=== PATIENT | female | born 1970 | race Native Hawaiian/Other Pacific Islander ===

== ENCOUNTER 2020-04-06 18:42 | Emergency (ER) | payer OTHER ==
[~2020-04-06] VITALS: Ht 162.6 cm; Wt 72.6 kg
[2020-04-06 18:55] VITALS: TEMP 98.1
[2020-04-06 20:33] LABS: PLATELET COUNT 354 K/uL (152-353)
[2020-04-06 20:35] LABS: POTASSIUM 4.2 mmol/L (3.6-5.2)
[2020-04-06 21:26] VITALS: BP 161/89
== END 2020-04-06 21:32 | disposition home or self-care (01) ==
LOC: ED 18:42
PROVIDERS: Family Medicine
DX: I10 Essential (primary) hypertension (principal); M54.9 Dorsalgia, unspecified; F41.9 Anxiety disorder, unspecified
CPT/HCPCS: 80053; 81000; 85027; 87086; 87088; 99283

== ENCOUNTER 2020-12-07 14:07 | Emergency (ER) | payer OTHER ==
[~2020-12-07] VITALS: Ht 162.6 cm; Wt 65.8 kg
[2020-12-07 14:19] VITALS: BP 109/67; TEMP 97.3
== END 2020-12-07 15:49 | disposition home or self-care (01) ==
LOC: ED 14:07
DX: S22.42XG Multiple fractures of ribs, left side, subsequent encounter for fracture with delayed healing (principal); Z86.16 Personal history of COVID-19; X50.9XXA Other and unspecified overexertion or strenuous movements or postures, initial encounter; Y92.89 Other specified places as the place of occurrence of the external cause
CPT/HCPCS: 99282

== ENCOUNTER 2021-02-01 10:06 | Emergency (ER) | payer OTHER ==
[~2021-02-01] VITALS: Ht 162.6 cm; Wt 72.6 kg
[2021-02-01 10:10] VITALS: TEMP 98.9
[2021-02-01 11:30] LABS: POTASSIUM 4.2 mmol/L (3.6-5.2); SODIUM 138 mmol/L (136-145)
[2021-02-01] MEDS ORDERED: BUSP5TAB2 PO (11:31)
[2021-02-01] MEDS ORDERED: GRALISE600 MG PO (11:32)
[2021-02-01] MEDS ORDERED: CLON0.1T16 PO (11:32)
[2021-02-01 11:41] LABS: PLATELET COUNT 332 K/uL (152-353)
[2021-02-01 12:00] VITALS: BP 125/79
== END 2021-02-01 12:15 | disposition home or self-care (01) ==
LOC: ED 10:06
PROVIDERS: Emergency Medicine
DX: F41.8 Other specified anxiety disorders (principal); Z65.9 Problem related to unspecified psychosocial circumstances; Z86.16 Personal history of COVID-19
CPT/HCPCS: 80053; 84484; 85027; 85379; 93005; 94664; 99283